=== PATIENT | male | born 1965 | race American Indian/Alaskan Native ===

== ENCOUNTER 2018-03-04 22:34 | Emergency (ER) | payer OTHER ==
[2018-03-04] MEDS ORDERED: ASPIRIN PO ONE (22:57)
[2018-03-05 00:04] LABS: BUN/Creatinine Ratio 19; Basophils # (Auto) 0.1 K/mm3 (0.0-0.1); Basophils % (Auto) 0.7 % (0.0-1.8); Blood Urea Nitrogen 23 mg/dL (9-20); Calcium 10.1 mg/dL (8.4-10.2); Eosinophils # (Auto) 0.3 K/mm3 (0.0-0.4); Eosinophils % (Auto) 3.4 % (0.0-4.3); Hematocrit 44.5 % (35.5-45.6); Hemolysis Index 27; Lymphocytes # (Auto) 1.9 K/mm3 (1.2-5.4); Lymphocytes % (Auto) 23.5 % (13.4-35.0); Mean Corpuscular HGB Conc 34 % (32-34); Mean Corpuscular Hemoglobin 32 pg (28-32); Mean Corpuscular Volume 94 fl (84-94); Monocytes # (Auto) 0.5 K/mm3 (0.0-0.8); Monocytes % (Auto) 6.8 % (0.0-7.3); Platelet Count 261 K/mm3 (140-440); Red Blood Count 4.75 M/mm3 (3.65-5.03); Red Cell Distribution Width 15.1 % (13.2-15.2)
--- NOTE | 2018-03-05 09:51 | Emergency Department Report ---
ED Chest Pain HPI - General Chief Complaint: Chest Pain Stated Complaint: CHEST PAIN/BACK PAIN Time Seen by Provider: 03/05/18 09:21 Source: patient Mode of arrival: Ambulatory Limitations: No Limitations - History of Present Illness Initial Comments: 52-year-old -[place] male presents to the emergency department with complaint of mid to lower back pain, right-sided rib pain and some pain to the lower right chest wall. This has been going on since Friday, 4 days ago. He denies any fever, nausea, vomiting, shortness of breath. He took Aleve for his symptoms without much relief. However the patient has been here for multiple hours and says that the pain has started to improve if not resolved since having his blood drawn. He has a past medical history of hypertension for which he takes losartan, hydrochlorothiazide and atenolol. He is a tobacco smoker. He does have some family history of early heart disease in his mother. Recent travel or sick contacts at home. The pain does appear to worsen with certain movements of his torso. - Related Data Previous Rx's Medication Instructions Recorded Last Taken Type HYDROcodone/APAP 5-325 [[place] 1 each PO Q6HR PRN #10 tablet 03/05/18 Unknown Rx 5/325] Allergies Allergy/AdvReac Type Severity Reaction Status Date / Time lisinopril AdvReac Angioedema Verified 03/04/18 22:57 Heart Score - HEART Score History: Slightly suspicious EKG: Normal Age: 45-65 Risk factors: > 3 risk factors or hx of atherosclerotic disease Troponin: < normal limit HEART Score: 3 - Critical Actions Critical Actions: 0-3 pts:0.9-1.7%risk of adverse cardiac event.Candidate for discharge ED Review of Systems ROS: Stated complaint: CHEST PAIN/BACK PAIN Other details as noted in HPI Comment: All other systems reviewed and negative Constitutional: denies: chills, fever Eyes: denies: eye pain, eye discharge, vision change ENT: denies: ear pain, throat pain Respiratory: denies: cough, shortness of breath, wheezing Cardiovascular: chest pain. denies: palpitations Gastrointestinal: denies: nausea, vomiting Genitourinary: denies: urgency, dysuria Musculoskeletal: back pain. denies: arthralgia Skin: denies: rash, lesions Neurological: denies: headache, weakness, paresthesias ED Past Medical Hx - Past Medical History Previous Medical History?: Yes Hx Hypertension: Yes - Surgical History Past Surgical History?: No - Social History Smoking Status: Current Every Day Smoker Substance Use Type: Alcohol - Medications Home Medications: Home Medications Medication Instructions Recorded Confirmed Last Taken Type HYDROcodone/APAP 5-325 [[place] 1 each PO Q6HR PRN #10 tablet 03/05/18 Unknown Rx 5/325] ED Physical Exam - General Limitations: No Limitations - Other Other exam information: GENERAL: The patient is well-developed well-nourished. HENT: Normocephalic. Atraumatic. Patient has moist mucous membranes. EYES: Extraocular motions are intact. Pupils equal reactive to light bilaterally. NECK: Supple. Trachea is midline. CHEST/LUNGS: Clear to auscultation. There is no respiratory distress noted. HEART/CARDIOVASCULAR: Regular. There is no tachycardia. There is no murmur. ABDOMEN: Abdomen is soft, nontender. Patient has normal bowel sounds. There is no abdominal distention. SKIN: Skin is warm and dry. NEURO: The patient is awake, alert, and oriented. The patient is cooperative. The patient has no focal neurologic deficits. The patient has normal speech. No gait abnormalities. MUSCULOSKELETAL: There is no tenderness or deformity. There is no limitation range of motion. There is no evidence of acute injury. ED Course Vital Signs 03/04/18 03/04/18 03/05/18 22:47 23:00 09:34 Temperature 98.4 F 97.8 F Pulse Rate 83 61 Respiratory 16 18 Rate Blood Pressure 195/125 Blood Pressure 172/111 160/96 [Left] Blood Pressure 174/110 [Right] O2 Sat by Pulse 98 98 Oximetry 03/05/18 10:51 Temperature Pulse Rate 60 Respiratory 16 Rate Blood Pressure Blood Pressure [Left] Blood Pressure 154/91 [Right] O2 Sat by Pulse 99 Oximetry ROSEANN score - Roseann Score Age > 65: (0) No Aspirin use within the Past 7 Days: (0) No 3 or more CAD Risk Factors: (1) Yes 2 or more Angina events in past 24 hrs: (1) Yes Known CAD with more than 50% Stenosis: (0) No Elevated Cardiac Markers: (0) No ST Deviation Greater than 0.5mm: (0) No ROSEANN Score: 2 ED Medical Decision Making - Lab Data Result diagrams: 03/04/18 23:02 08/08/18 23:02 - EKG Data -: EKG Interpreted by Me EKG shows normal: sinus rhythm, axis, intervals, QRS complexes (LVH), ST-T waves Rate: normal - EKG Data When compared to previous EKG there are: previous EKG unavailable Interpretation: LVH - Radiology Data Radiology results: image reviewed interpreted by me: Chest x-ray does not show any acute process. There are no pleural effusions, obvious pneumonia and there is no pneumothorax. - Medical Decision Making Patient presents with some mid back pain and right-sided chest and/or chest wall pain. EKG shows LVH but no ST elevation MA or obvious ischemia. Chest x- ray does not show any acute processes. The patient was here from overnight and therefore his had negative troponins 3. He has no points of any shortness of breath. Vital signs stable throughout his course. He is low on the Wells criteria and negative on the pulmonary embolism rule out criteria. Patient says that he feels improved. Since the patient does have a few risk factors for coronary artery disease, I spoke with [facility] and the patient has been set up for an appointment with Dr. Waller for tomorrow morning at 10:30 AM. The patient was given the appointment card as well as discharge paperwork outlining this cardiology appointment. He was given some pain medication for home. He was encouraged to return the emergency Department with any worsening of symptoms or any acute distress. - Differential Diagnosis MA, Costochondritis, GERD, Muscle spasm Critical Care Time: No Critical care attestation.: If time is entered above; I have spent that time in minutes in the direct care of this critically ill patient, excluding procedure time. ED Disposition Clinical Impression: Tobacco use Chest pain Qualifiers: Chest pain type: unspecified Qualified Code(s): R07.9 - Chest pain, unspecified Back pain Qualifiers: Back pain location: back pain in unspecified location Chronicity: unspecified Back pain laterality: unspecified Qualified Code(s): M54.9 - Dorsalgia, unspecified Disposition: DC-01 TO HOME OR SELFCARE Is pt being admited?: No Condition: Stable Instructions: Chest Pain (ED), How to Stop Smoking (ED), Back Pain (ED) Additional Instructions: I have made you an appointment with the provider relations advocate for tomorrow at [address] Waller. If you cannot make his appointment, please call them and change it to a time when he will be able to see them for follow-up. Follow-up with your primary care physician. Return to the emergency Department with any worsening of your symptoms or any acute distress. You have been prescribed a medication that is sedating and therefore should not be taken prior to driving, working, and responsible for children and in no way should be mixed with alcohol of any quantity. Stay with foods are high in salt and caffeinated products to help with your elevated blood pressure. Keep a blood pressure log. Please try and quit smoking. Prescriptions: HYDROcodone/APAP 5-325 [[place] 5/325] 1 each PO Q6HR PRN #10 tablet PRN Reason: Pain Referrals: PRIMARY CARE, [Primary Care Provider] - 3-5 Days MAT WALLER MD [Staff Physician] - 03/06/18 10:30 am Forms: Work/School Release Form(ED) Time of Disposition: 10:43
--- NOTE | 2018-03-05 10:45 | XRay Report ---
ROUTINE CHEST, TWO VIEWS: HISTORY: Right sided chest pain. The trachea, heart, mediastinal contour, lung solis and bony thorax are unremarkable. IMPRESSION: Unremarkable chest x-ray.
[2018-03-05 10:52] VITALS: BP 154/91
== END 2018-03-05 10:50 | disposition home or self-care (01) ==
LOC: ED 22:34
DX: R07.89 Other chest pain (principal); R07.81 Pleurodynia; I10 Essential (primary) hypertension; F17.200 Nicotine dependence, unspecified, uncomplicated; Z88.8 Allergy status to other drugs, medicaments and biological substances
CPT/HCPCS: 36415; 71046; 80048; 84484; 85025; 93005; 93010; 99284